=== PATIENT | female | born 1965 | race Caucasian/White ===

== ENCOUNTER 2020-11-30 10:49 | Outpatient (REF) | payer OTHER, SELFPAY ==
--- NOTE | 2020-11-30 | US_ITS ---
EXAMINATION: PELVIC ULTRASOUND CLINICAL INFORMATION: Postmenopausal bleeding COMPARISON: None TECHNIQUE: Transabdominal and transvaginal pelvic ultrasound was performed. Transvaginal exam was performed for better visualization of the uterus and ovaries. FINDINGS: The uterus is retroverted and measures 7.7 x 4.8 x 5.5 cm in dimension. Uterine echotexture is heterogeneous. There are 2 heterogeneous focal uterine lesions probably representing fibroids measuring 1.1 x 1.2 x 1.1 cm left uterine body and 1.8 x 1.1 x 1.2 cm in the right lower uterine segment near the endometrium. There is a 7 mm cyst in the high posterior uterine body. Endometrial thickness is upper normal for postmenopausal patient measuring 0.6 cm. There are nabothian cysts in the cervix. The right ovary is normal-appearing and measures 2.5 x 1.8 x 1.4 cm. The left ovary measures 2.4 x 2.3 x 2.3 cm and contains a small 1.3 cm simple left ovarian cyst. There is trace fluid in the pelvis. US/US pelvic complete IMPRESSION: Heterogeneous uterus with 2 small fibroids and small cyst. Upper normal thickness endometrium measuring 0.6 cm. Small 1.3 cm simple left ovarian cyst.
--- NOTE | 2020-11-30 | US_ITS ---
EXAMINATION: PELVIC ULTRASOUND CLINICAL INFORMATION: Postmenopausal bleeding COMPARISON: None TECHNIQUE: Transabdominal and transvaginal pelvic ultrasound was performed. Transvaginal exam was performed for better visualization of the uterus and ovaries. FINDINGS: The uterus is retroverted and measures 7.7 x 4.8 x 5.5 cm in dimension. Uterine echotexture is heterogeneous. There are 2 heterogeneous focal uterine lesions probably representing fibroids measuring 1.1 x 1.2 x 1.1 cm left uterine body and 1.8 x 1.1 x 1.2 cm in the right lower uterine segment near the endometrium. There is a 7 mm cyst in the high posterior uterine body. Endometrial thickness is upper normal for postmenopausal patient measuring 0.6 cm. There are nabothian cysts in the cervix. The right ovary is normal-appearing and measures 2.5 x 1.8 x 1.4 cm. The left ovary measures 2.4 x 2.3 x 2.3 cm and contains a small 1.3 cm simple left ovarian cyst. There is trace fluid in the pelvis. US/US transvaginal IMPRESSION: Heterogeneous uterus with 2 small fibroids and small cyst. Upper normal thickness endometrium measuring 0.6 cm. Small 1.3 cm simple left ovarian cyst.
== END 2020-11-30 10:50 | disposition home or self-care (01) ==
LOC: HO.US 10:49
PROVIDERS: Visit Provider Advanced Practice Midwife
DX: N95.0 Postmenopausal bleeding (principal)
CPT/HCPCS: 76830; 76856

== ENCOUNTER 2020-12-27 08:38 | Outpatient (REF) | payer OTHER, SELFPAY ==
--- NOTE | ~2020-12-27 | MM_ITS ---
EXAMINATION: MM SCREENING DIGITAL BREAST TOMOSYNTHESIS, BILATERAL CLINICAL INFORMATION: Screening. Asymptomatic. The lifetime risk of breast cancer based on the Tyrer-Cuzick Model is 18%. COMPARISON: Mammography: 09/25/2019, 03/08/2018, 10/30/2016 TECHNIQUE: Digital breast tomosynthesis is performed in both the craniocaudal and mediolateral oblique views along with computer-aided detection (CAD). Synthesized 2D images are generated from the tomosynthesis. Additional right CC view is provided. FINDINGS: There are scattered areas of fibroglandular density (ACR BI-RADS breast composition Category b). There are no significant masses, abnormal calcifications, or other abnormalities. Parenchymal pattern is similar to prior exam. Nodularity anterior outer left breast is decreased from prior exams. There are dermal lesions again noted overlying the right breast. No significant changes. MM/MM tomosynthesis screening BI IMPRESSION: No mammographic evidence of malignancy. ASSESSMENT: BI-RADS 2: Benign RECOMMENDATION: Routine annual mammography screening. This patient's information was entered into a reminder system with a target due date for their next mammogram.
== END 2020-12-27 08:39 | disposition home or self-care (01) ==
LOC: HO.MAMMO 08:38
PROVIDERS: PCP Internal Medicine; Visit Provider Internal Medicine
DX: Z12.31 Encounter for screening mammogram for malignant neoplasm of breast (principal)
CPT/HCPCS: 77063; 77067

== ENCOUNTER 2021-02-25 09:23 | Day surgery (SDC) | payer OTHER, SELFPAY ==
[2021-01-31 19:20] VITALS: BMI 35.0
--- NOTE | 2021-02-07 10:09 | HO.ANESPROP2 ---
HPI - Anesthesia Eval Consult details Narrative: 55yo F for Colonoscopy PMFSH Active Problems Active Problems: All Active Problems (Updated 01/31/21 @ 19:14 by Nicole Buck, RN) Colon cancer screening (Acute) Past Medical History Medical History (Updated 01/31/21 @ 19:14 by Nicole Buck, RN) Anxiety COPD (chronic obstructive pulmonary disease) Depression Elevated cholesterol GERD (gastroesophageal reflux disease) Hypertension Surgical History Surgical History (Updated 01/31/21 @ 19:18 by Nicole Buck RN) H/O cervical polypectomy History of dental surgery Social History Social History Smoking Status: Current every day smoker Packs Per Day: 1 Cigarettes Per Day: 20.0 Meds Allergies Allergy/AdvReac Type Severity Reaction Status Date / Time No Known Allergies Allergy Verified 01/31/21 19:11 Home Medications Medication Instructions Recorded Confirmed Last Taken Type albuterol sulfate 2 puff INHALATION NEEDED PRN 01/31/21 01/31/21 Unknown History aspirin 1 tab PO DAILY 01/31/21 01/31/21 Unknown History lisinopril 1 tab PO DAILY 01/31/21 01/31/21 Unknown History quetiapine 200 mg PO BEDTIME 01/31/21 01/31/21 Unknown History simvastatin 1 tab PO BEDTIME 01/31/21 01/31/21 Unknown History venlafaxine 150 mg PO BID 01/31/21 01/31/21 Unknown History Exam Exam Date and Time: February 07, 2021 1009 Height,Weight and Vital Signs: Height 5 ft 6 in Weight 98.43 kg Assessment and Plan Assessment Anesthesia Assessment: Chart Reviewed
--- NOTE | 2021-02-23 14:02 | HO.ANESPROP2 ---
HPI - Anesthesia Eval Consult details Narrative: 55yo F for Colonoscopy PMFSH Active Problems Active Problems: All Active Problems (Updated 01/31/21 @ 19:14 by Nicole Buck RN) Colon cancer screening (Acute) Past Medical History Medical History Anxiety COPD (chronic obstructive pulmonary disease) Depression Elevated cholesterol GERD (gastroesophageal reflux disease) Hypertension Surgical History Surgical History H/O cervical polypectomy History of dental surgery Social History Social History Smoking Status: Current every day smoker Packs Per Day: 1 Cigarettes Per Day: 20.0 Meds Allergies Allergy/AdvReac Type Severity Reaction Status Date / Time No Known Allergies Allergy Verified 01/31/21 19:11 Home Medications Medication Instructions Recorded Confirmed Last Taken Type albuterol sulfate 2 puff INHALATION NEEDED PRN 01/31/21 01/31/21 Unknown History aspirin 1 tab PO DAILY 01/31/21 02/25/21 02/23/21 History lisinopril 1 tab PO DAILY 01/31/21 01/31/21 Unknown History quetiapine 200 mg PO BEDTIME 01/31/21 01/31/21 Unknown History simvastatin 1 tab PO BEDTIME 01/31/21 01/31/21 Unknown History venlafaxine 150 mg PO BID 01/31/21 01/31/21 Unknown History Exam Exam Date and Time: February 23, 2021 1402 Height,Weight and Vital Signs: Height 5 ft 6 in Weight 98.43 kg Assessment and Plan Assessment Anesthesia Assessment: Chart Reviewed
[2021-02-25 09:39] VITALS: BP 134/89; PULSE 78; RESP 16; TEMP 37.1; O2SAT 98
--- NOTE | 2021-02-25 09:41 | W.PM.OPN ---
Operative Note Operative Note Date of Service: 02/25/21 Narrative: Pre-op diagnosis: colon cancer screening Post-op diagnosis: other (Colon polyps, diverticulosis) Procedure: COLONOSCOPY TILL CECUM WITH SNARE POLYPECTOMY Consent: Indications for the procedure and potential complications of bleeding, perforation, reaction to medications and missed diagnosis were discussed with the patient and informed consent was obtained. Instrument: Olympus PCF H 190 L variable stiffness pediatric colonoscope Monitoring: Vital signs and clinical assessment, intermittent blood pressure monitoring, continuous EKG monitoring, Pulse oximetry and Carbon Dioxide monitoring were done throughout the procedure. Colon withdrawl time was 24 minutes. Procedure: The patient was placed in the left lateral decubitis position and pre-procedure medications were administered. After a digital rectal examination of the ano-rectum, the video colonoscope was inserted into the rectum and advanced through the colon to the cecum. The colonoscope was slowly withdrawn in a retrograde panoramic fashion and the colon mucosa was carefully examined including a retroflexed view of the rectum. Findings and interventions are described below. Colon polyps, Procedure Difficulty: Without difficulty Findings: Terminal Ileum: Not evaluated Cecum: Normal Ascending Colon: Normal Transverse Colon: Three 10-15 mm sessile polyps in the proximal transverse colon at the hepatic flexure - removed with a hot snare Descending Colon: Normal Sigmoid Colon: Moderate diverticulosis Rectum: A 7-8 mm sessile polyp removed with a cold snare Ano-rectum: Normal Colon preparation: Good after copious irrigation Impression and Post Procedure Diagnosis: Colonoscopy Findings: Four small to medium sized polyps removed Moderate diverticulosis seen in the sigmoid colon Plan: Await pathology results Patient to schedule a FU appointment in the GI Clinic with Ashley Alicea NP to discuss bx results and symptoms of indigestion. Repeat Colonoscopy interval based on path results - in 3 years if polyps are adenomatous and 10 years if polyps are hyperplastic. Above findings were reviewed with the patient and colon polyps and diverticulosis handouts were given in the discharge area Surgeon: Anita Santo MD Anesthesia: MAC ([place] [facility]) [employer]otions Executive Producer: Hailee Campbell Estimated blood loss (mL): 0 Pathology: other ( A: TRANSVERSE COLON POLYPS B: RECTAL POLYP) Condition: stable Disposition: PACU
--- NOTE | 2021-02-25 09:41 | MHC.SHP ---
Pre-Procedural Eval Section A The patient is an INPATIENT: No The History & Physical has been completed within 30 days and I have reviewed it.: No Section B Chief Complaint: SCREENING Relevant Social History: Tobacco Use Present Medications: see Short Stay Collaborative assessment Medical History: Significant History (Anxiety COPD (chronic obstructive pulmonary disease) Depression Elevated cholesterol GERD (gastroesophageal reflux disease) Hypertension) History of Previous Operations: Relevant previous surgery/procedure and date(s) (H/O cervical polypectomy History of dental surgery) Allergies: Allergies Allergy/AdvReac Type Severity Reaction Status Date / Time No Known Allergies Allergy Verified 01/31/21 19:11 Review of Systems Sugical H&P ROS: Negative: Constitution and Cardiovascular and Yes, Specify: Respiratory (Shortness of breath due to COPD) and Gastrointestinal (Indigestion) Exam Surgical H&P Exam: Normal: Heart, Normal: Lungs, Normal: Extremities and Normal: Abdomen Plan Diagnosis/Plan: Unchanged I have reviewed the history and physical and performed a pertinent physical examination on my patient. No changes have occurred unless specified.
[2021-02-25] MEDS: Lactated Ringers 1,000 ML 100 ML IVCONT (09:44)
[2021-02-25 10:44] VITALS: BP 124/68; PULSE 66; RESP 16; TEMP 36.1; O2SAT 97
[2021-02-25 11:00] VITALS: BP 136/79; PULSE 62; RESP 16; TEMP 36.1; O2SAT 96
== END 2021-02-25 12:05 | disposition home or self-care (01) ==
PROVIDERS: PCP Internal Medicine; Visit Provider Internal Medicine Gastroenterology
PROC: 0DJD8ZZ Inspection of Lower Intestinal Tract, Via Natural or Artificial Opening Endoscopic (ICD-10-PCS; CPT 45378; principal; 2021-02-25 10:50)
DX: Z12.11 Encounter for screening for malignant neoplasm of colon (principal); K57.30 Diverticulosis of large intestine without perforation or abscess without bleeding; D12.3 Benign neoplasm of transverse colon; K62.1 Rectal polyp; J44.9 Chronic obstructive pulmonary disease, unspecified; F32.9 Major depressive disorder, single episode, unspecified; I10 Essential (primary) hypertension; F17.210 Nicotine dependence, cigarettes, uncomplicated; Z79.82 Long term (current) use of aspirin; Z79.899 Other long term (current) drug therapy
CPT/HCPCS: 45385; 88305

== ENCOUNTER → 2021-07-28 14:20 | Outpatient (BNVA) | payer OTHER, SELFPAY | PROVIDERS: Visit Provider Internal Medicine Gastroenterology | CPT/HCPCS: Q3014 ==